=== PATIENT | male | born 1965 | race Two or more races ===

== ENCOUNTER 2024-10-09 18:38 | Inpatient (IN) | payer MEDICARE, OTHER ==
[~2024-10-09] VITALS: Ht 172.7 cm; Wt 69.4 kg
[2024-10-09] MEDS ORDERED: CLON0.1T PO (18:55)
[2024-10-09] MEDS ORDERED: LOSA25TA27 PO (18:55)
[2024-10-09] MEDS ORDERED: HYDR-894 PO (18:55)
[2024-10-09] MEDS ORDERED: FAMO40TA7 PO (18:55)
[2024-10-09] MEDS ORDERED: BISA10SU61 RC (18:55)
[2024-10-09] MEDS ORDERED: DOCU100C36 PO (18:55)
[2024-10-09] MEDS ORDERED: ASPI81TA31 PO (18:55)
[2024-10-09] MEDS ORDERED: ATOR80TA PO (18:55)
[2024-10-09] MEDS ORDERED: NA P133E RC (18:55)
[2024-10-09] MEDS ORDERED: SULF1TAB48 PO (18:55)
[2024-10-09] MEDS ORDERED: NIFE-35 PO (18:55)
[2024-10-09] MEDS ORDERED: MULT-213 PO (18:55)
[2024-10-09] MEDS ORDERED: MELA3CAP2 PO (18:58)
[2024-10-09] MEDS ORDERED: INSU100V39 SQ (18:58)
[2024-10-09] MEDS ORDERED: MAGN400O6 PO (18:58)
[2024-10-09 19:07] LABS: PLATELET COUNT (AUTO) 160 K/uL (152-348); RED BLOOD CELL COUNT(AUTO) 4.99 MIL/uL (4.06-5.63); RED CELL DISTRIBUTION WIDTH 14.8 % (12.1-16.2); WHITE BLOOD COUNT (AUTO) 6.4 K/uL (3.6-10.2)
[2024-10-09 19:18] LABS: CREATININE 0.6 mg/dL (0.6-1.3); SODIUM SERUM 143 mmol/L (136-145); UREA NITROGEN, BLOOD 13 mg/dL (7-18)
[2024-10-09 19:20] LABS: ETHANOL < 3 MG/DL (0-10)
[2024-10-09 19:24] LABS: ASPARTATE AMINOTRANSFERASE 13 U/L (15-37); TOTAL PROTEIN, SERUM 8.8 g/dL (6.4-8.2)
[2024-10-09 21:46] LABS: *BILIRUBIN,URIN NEGATIVE (NEGATIVE); *CLARITY,URINE SLIGHTLY CLOUDY (CLEAR); *COLOR,URINE LIGHT YELLOW (YELLOW); *KETONES,URINE NEGATIVE (NEGATIVE); *PROTEIN,URINE NEGATIVE (NEGATIVE); *UROBILINOGEN,URINE 1.0 E.U./dl (NORMAL); LEUKOCYTE ESTERASE ,URINE NEGATIVE (NEGATIVE); NITRITE, URINE NEGATIVE (NEGATIVE); UGLUCOSE NEGATIVE (NEGATIVE)
[2024-10-09 21:47] LABS: *BLOOD, URINE TRACE (NEGATIVE)
[2024-10-09 21:57] LABS: SQUAMOUS EPITHELIAL CELL,UR FEW /HPF (NONE SEEN); URINE AMORPHOUS PHOSPHATES MANY /HPF
[2024-10-09 21:59] LABS: *AMPHETAMINE, URINE NEGATIVE (NEGATIVE); *BARBITURATE, URINE NEGATIVE (NEGATIVE); *BENZODIAZEPINE, URINE NEGATIVE (NEGATIVE); *CANNABINOID, URINE NEGATIVE (NEGATIVE); *COCCAINE, URINE NEGATIVE (NEGATIVE); *OPIATE, URINE NEGATIVE (NEGATIVE); *PHENCYCLIDINE SCREEN,URINE NEGATIVE (NEGATIVE); FENTANYL, URINE NEGATIVE (NEGATIVE)
[2024-10-09 22:37] VITALS: BP 137/81; TEMP 98.6; O2SAT 95
[2024-10-09] MEDS ORDERED: CLONIDINE HCL 0.1 MG TABLET PO PRN (23:00)
[2024-10-09] MEDS ORDERED: BISACODYL 10 MG SUPP.RECT RC PRN (23:00)
[2024-10-09] MEDS ORDERED: ENALAPRILAT DIHYDRATE 1.25 MG/1 ML VIAL IV PRN (23:15)
[2024-10-09] MEDS ORDERED: ACETAMINOPHEN 325 MG TABLET PO PRN (23:15)
[2024-10-09] MEDS ORDERED: HALOPERIDOL LACTATE 5 MG/1 ML VIAL IM PRN (23:15)
[2024-10-09] MEDS ORDERED: TEMAZEPAM 15 MG CAPSULE PO PRN (23:15)
[2024-10-09] MEDS ORDERED: ONDANSETRON 4 MG/2 ML VIAL IV PRN (23:15)
[2024-10-10] MEDS: ENOXAPARIN SODIUM 40 MG/0.4 ML DISP.SYRIN SQ SCH (00:07)
[2024-10-10] MEDS ORDERED: MELATONIN 3 MG TABLET PO PRN (00:15)
[2024-10-10 05:47] VITALS: BP 135/79; TEMP 98; O2SAT 96
[2024-10-10] MEDS: PANTOPRAZOLE SODIUM 40 MG TABLET.DR PO SCH (06:22)
[2024-10-10] MEDS: ASPIRIN 81 MG TAB.CHEW PO SCH (06:22)
[2024-10-10 07:00] LABS: PLATELET COUNT (AUTO) 148 K/uL (152-348); RED BLOOD CELL COUNT(AUTO) 4.45 MIL/uL (4.06-5.63); RED CELL DISTRIBUTION WIDTH 14.8 % (12.1-16.2); WHITE BLOOD COUNT (AUTO) 6.3 K/uL (3.6-10.2)
[2024-10-10 08:59] LABS: ASPARTATE AMINOTRANSFERASE 10.0 U/L (15-37); CREATININE 0.8 mg/dL (0.6-1.3); SODIUM SERUM 141.0 mmol/L (136-145); TOTAL PROTEIN, SERUM 7.0 g/dL (6.4-8.2); UREA NITROGEN, BLOOD 12.0 mg/dL (7-18)
[2024-10-10] MEDS: DOCUSATE SODIUM 100 MG CAPSULE PO SCH ×2 (09:09→20:28)
[2024-10-10] MEDS: LOSARTAN POTASSIUM 25 MG TABLET PO SCH (09:09)
[2024-10-10] MEDS: NIFEdipine XL 30 MG TABSR PO SCH (09:09)
[2024-10-10] MEDS: MULTIVITAMINS,THERAPEUTIC TABLET PO SCH (09:09)
[2024-10-10] MEDS ORDERED: ASPI81TA31 PO (10:55)
[2024-10-10 12:08] VITALS: BP 136/87; TEMP 98.4; O2SAT 96
[2024-10-10 15:50] VITALS: BP 149/88; TEMP 97.7; O2SAT 96
[2024-10-10 19:55] VITALS: BP 141/84; TEMP 98.3; O2SAT 96
[2024-10-10] MEDS: ATORVASTATIN 40 MG TABLET PO SCH (20:28)
[2024-10-11 06:10] VITALS: BP 123/72; TEMP 97.8; O2SAT 100
[2024-10-11] MEDS: ASPIRIN 81 MG TAB.CHEW PO SCH (08:39)
[2024-10-11 08:41] VITALS: BP 150/80; TEMP 98.1; O2SAT 98
[2024-10-11 11:10] VITALS: BP 151/80; TEMP 98.9; O2SAT 96
[2024-10-11] MEDS ORDERED: METH-806 PO (11:20)
== END 2024-10-11 14:25 | DRG 689 ==
LOC: ER 19:10 → TELE3 21:53 → MEDSURG3 10-10 08:20
PROVIDERS: ADMIT Internal Medicine; ATTEND Nurse Practitioner Family
DX: N39.0 Urinary tract infection, site not specified (principal); I21.A1 Myocardial infarction type 2; I69.354 Hemiplegia and hemiparesis following cerebral infarction affecting left non-dominant side; G91.2 (Idiopathic) normal pressure hydrocephalus; B96.89 Other specified bacterial agents as the cause of diseases classified elsewhere; I10 Essential (primary) hypertension; E78.5 Hyperlipidemia, unspecified; R45.850 Homicidal ideations; I69.322 Dysarthria following cerebral infarction; I69.391 Dysphagia following cerebral infarction; R13.10 Dysphagia, unspecified; M81.0 Age-related osteoporosis without current pathological fracture; E11.40 Type 2 diabetes mellitus with diabetic neuropathy, unspecified; Z79.4 Long term (current) use of insulin; Z79.82 Long term (current) use of aspirin; Z79.899 Other long term (current) drug therapy; G31.9 Degenerative disease of nervous system, unspecified; K21.9 Gastro-esophageal reflux disease without esophagitis; I70.0 Atherosclerosis of aorta; I25.10 Atherosclerotic heart disease of native coronary artery without angina pectoris; Z87.891 Personal history of nicotine dependence
CPT/HCPCS: 36415; 70450; 71045; 83605; 83735; 84100; 84443; 84484; 85025; 85730; 87040; 87086; 93307; A4606; A4663; C1758; G0378; G0480; J1650